=== PATIENT | male | born 2000 | race Caucasian/White ===

== ENCOUNTER 2018-05-28 12:32 | Emergency (ER) | payer OTHER ==
[2018-05-28 12:47] VITALS: BP 99/32; PULSE 63; TEMP 98.2; BMI 17.6
--- NOTE | 2018-05-28 13:09 | PDOC ---
History of Present Illness - General Chief Complaint: Wound Stated Complaint: SWOLLEN FACE Time Seen by Provider: 05/28/18 12:59 History Source: Patient Exam Limitations: Clinical Condition - History of Present Illness Initial Comments: 05/28/18 13:09 Patient with no significant past medication present with complaint of redness and swelling to the mid forehead status post popping a pimple 2 days ago. Patient reported increased pain to for over wound area. Patient denies dizziness , headache, fever, blurry vision. Patient denies any other symptoms Timing/Duration: other (2 days) Past History - Past Medical History Allergies/Adverse Reactions: Allergies Allergy/AdvReac Type Severity Reaction Status Date / Time No Known Allergies Allergy Verified 10/18/14 11:26 Home Medications: Ambulatory Orders Cephalexin Monohydrate [Keflex -] 500 mg PO BID 7 Days #14 capsule 05/28/18 Mupirocin Ointment [Bactroban 2% Ointment -] 1 applic TP BID #1 tube 05/28/18 Sulfamethoxazole/Trimethoprim [Bactrim Ds -] 1 tab PO BID #14 tablet 05/28/18 COPD: No - Immunization History Immunization Up to Date: Yes - Suicide/Smoking/Psychosocial Hx Smoking History: Never smoked Hx Alcohol Use: No Drug/Substance Use Hx: No Review of Systems - Review of Systems Able to Perform ROS?: Yes Is the patient limited [place] proficient: No Constitutional: No: Chills, Fever, Weakness HEENTM: Yes: See HPI. No: Eye Pain, Blurred Vision, Recent change in vision, Double Vision Respiratory: No: Symptoms reported Cardiac (ROS): No: Symptoms Reported ABD/GI: No: Symptoms Reported, Nausea, Vomiting Neurological: No: Headache, Weakness, Unsteady Gait, Dizziness All Other Systems: Reviewed and Negative *Physical Exam - Vital Signs Last Vital Signs Temp Pulse Resp BP Pulse Ox 98.2 F 63 16 99/32 L 99 05/28/18 12:36 05/28/18 12:36 05/28/18 12:36 05/28/18 12:36 05/28/18 12:36 - Physical Exam Comments: 05/28/18 13:15 GENERAL: Well developed, well nourished. Awake and alert. No acute distress. HEENT: Normocephalic, atraumatic. PERRLA, EOMI. No conjunctival pallor. Sclera are non-icteric. Moist mucous membranes. Oropharynx is clear. NECK: Supple. Full ROM. CARDIOVASCULAR: Regular rate and rhythm. No murmurs, rubs, or gallops. Distal pulses are 2+ and symmetric. PULMONARY: No evidence of respiratory distress. Lungs clear to auscultation bilaterally. No wheezing, rales or rhonchi. ABDOMINAL: Soft. Non-tender. Non-distended. No rebound or guarding. No organomegaly. Normoactive bowel sounds. SKIN: moderate localized erythema over single erupted comedone to anterior mid- forehead. NEUROLOGICAL: Alert, awake, appropriate. Gait is normal without ataxia. PSYCHIATRIC: Cooperative. Good eye contact. Appropriate mood General Appearance: Yes: Nourished, Appropriately Dressed. No: Apparent Distress Moderate Sedation - Procedure Monitoring Vital Signs: Procedure Monitoring Vital Signs Temperature 98.2 F 05/28/18 12:36 Pulse Rate 63 05/28/18 12:36 Respiratory Rate 16 05/28/18 12:36 Blood Pressure 99/32 L 05/28/18 12:36 O2 Sat by Pulse Oximetry (%) 99 05/28/18 12:36 Medical Decision Making - Medical Decision Making 05/28/18 13:11 Patient with no significant past medication present with complaint of redness and swelling to the mid forehead status post popping a pimple 2 days ago.Exam significant for moderate erythema to anterior mid forehead with one small wound consistent with wound from erupted comedone. No evidence of orbital or periorbital cellulitis. Patient is stable for discharge on Keflex and Bactrim for folliculitis with straight follow-up *DC/Admit/Observation/Transfer Diagnosis at time of Disposition: Cellulitis of forehead - Discharge Dispostion Disposition: HOME Condition at time of disposition: Stable Decision to Admit order: No - Prescriptions Prescriptions: Cephalexin Monohydrate [Keflex -] 500 mg PO BID 7 Days #14 capsule Mupirocin Ointment [Bactroban 2% Ointment -] 1 applic TP BID #1 tube Sulfamethoxazole/Trimethoprim [Bactrim Ds -] 1 tab PO BID #14 tablet - Referrals Referrals: Mike Arriola MD [Primary Care Provider] - - Patient Instructions Printed Discharge Instructions: DI for Cellulitis -- Adult, DI for Wound Infection Additional Instructions: Take medications as prescribed. apply warm compress to forehead 2-3times/day for 5-10mins as needed for swelling. Come back to ER if fever, vomiting, severe headache, dizziness - Post Discharge Activity
== END 2018-05-28 13:12 | disposition home or self-care (01) ==
LOC: JERFT 12:32
DX: L03.211 Cellulitis of face (principal)
CPT/HCPCS: 99281-25